=== PATIENT | female | born 1965 | race Caucasian/White ===

== ENCOUNTER 2020-06-10 19:54 | Inpatient (IN) | payer MEDICAID ==
[~2020-06-10] VITALS: Ht 170.2 cm; Wt 67.0 kg
[2020-06-10] MEDS ORDERED: INFLUENZA VIRUS VACCINE QVS 2020-21 (6MO+)/PF 60 MCG/0.5 ML SYRINGE IM ONE (23:00)
[2020-06-11 01:11] VITALS: BP 113/64
[2020-06-11 07:25] LABS: BASOPHILS % (AUTO) 0.4 % (0.0-2.0); EOSINOPHILS % (AUTO) 1.9 % (1.0-6.0); HEMATOCRIT 37.6 % (36-46); HEMOGLOBIN 13.1 g/dL (12.0-16.0); LYMPHOCYTES # (AUTO) 1.3 K/uL (1.0-4.8); LYMPHOCYTES % (AUTO) 23.9 % (22.0-44.0); MEAN CORPUSCULAR HEMOGLOBIN 32.1 pg (26.0-34.0); MEAN CORPUSCULAR HGB CONC 34.9 G/dL (31.0-37.0); MEAN CORPUSCULAR VOLUME 92 fL (80-100); MONOCYTES # (AUTO) 0.4 K/uL (0.1-1.0); MONOCYTES % (AUTO) 7.6 % (2.0-9.0); NEUTROPHILS # (AUTO) 3.5 K/uL (1.8-7.7); NEUTROPHILS % (AUTO) 66.2 % (40.0-70.0); PLATELET COUNT (AUTO) 269 K/uL (150-450); RED BLOOD CELL COUNT(AUTO) 4.08 MIL/uL (4.00-5.20); RED CELL DISTRIBUTION WIDTH 14.1 % (11.5-14.5)
[2020-06-11 07:49] LABS: ALANINE AMINOTRANSFERASE 14 U/L (12-78); ALBUMIN 3.2 g/dL (3.4-5.0); ALKALINE PHOSPHATASE 77 U/L (46-116); ANION GAP 7 mmol/L (8-16); ASPARTATE AMINOTRANSFERASE 14 U/L (15-37); BILIRUBIN,TOTAL 0.3 mg/dL (0.1-1.0); CALCIUM, TOTAL 8.7 mg/dL (8.8-10.5); CARBON DIOXIDE 26 mmol/L (22-29); CHLORIDE 108 mmol/L (98-107); CHOL/HDL RATIO 2.4 (3.9-5.7); CHOLESTEROL 161 mg/dL (131-200); CREATININE 0.76 mg/dL (0.60-1.30); FREE T4 (FREE THYROXINE) 0.91 ng/dL (0.76-1.46); GLOMERULAR FILTR. RATE CALC > 60 mL/min (>60); GLUCOSE,RANDOM 86 mg/dL (70-110); HDL CHOLESTEROL 67 mg/dL (40-60); LDL CHOL (CALC.) 67 mg/dL (0-130); SODIUM SERUM 141 mmol/L (136-145); THYROID STIMULATING HORMONE 0.38 uIU/mL (0.36-3.74); TOTAL PROTEIN, SERUM 6.2 g/dL (6.4-8.2); TRIGLYCERIDES 137 mg/dL (15-150); UREA NITROGEN, BLOOD 13 mg/dL (7-18)
[2020-06-11 11:21] VITALS: BP 111/58
[2020-06-11] MEDS: LORazepam 2 MG TABLET PO PRN ×2 (13:53→22:29)
[2020-06-11 16:13] VITALS: BP 111/63
[2020-06-11] MEDS: ZOLPIDEM TARTRATE 10 MG TABLET PO PRN (20:28)
[2020-06-11] MEDS: ACETAMINOPHEN 325 MG TABLET PO PRN (20:52)
[2020-06-12 01:55] VITALS: BP 118/74
[2020-06-12] MEDS: LORazepam 2 MG TABLET PO PRN ×3 (05:39→16:49)
[2020-06-12 08:11] VITALS: BP 110/81
[2020-06-12] MEDS: HALOPERIDOL 5 MG TABLET PO PRN (08:30)
[2020-06-12 17:27] VITALS: BP 113/62
[2020-06-12] MEDS: ZOLPIDEM TARTRATE 10 MG TABLET PO PRN (20:21)
[2020-06-13 05:55] VITALS: BP 109/61
[2020-06-13] MEDS: ACETAMINOPHEN 325 MG TABLET PO PRN ×2 (06:52→15:30)
[2020-06-13] MEDS: LORazepam 2 MG TABLET PO PRN ×2 (06:52→15:30)
[2020-06-13 08:22] VITALS: BP 106/62
[2020-06-13] MEDS: CITALOPRAM HYDROBROMIDE 20 MG TABLET PO SCH (08:35)
[2020-06-13] MEDS: HALOPERIDOL 5 MG TABLET PO PRN (10:03)
[2020-06-13 15:23] VITALS: BP 108/65
[2020-06-13 16:08] VITALS: BP 110/60
[2020-06-13] MEDS: ZOLPIDEM TARTRATE 10 MG TABLET PO PRN (21:16)
[2020-06-14 00:12] VITALS: BP 112/61
[2020-06-14 08:20] VITALS: BP 99/69
[2020-06-14] MEDS: CITALOPRAM HYDROBROMIDE 20 MG TABLET PO SCH (08:51)
[2020-06-14 11:05] VITALS: BP 117/72
[2020-06-14] MEDS: LORazepam 2 MG TABLET PO PRN ×2 (11:07→16:38)
[2020-06-14] MEDS ORDERED: PIPERONYL BUTOXIDE/PYRETHRINS 120 ML SHAMPOO TP ONE (11:30)
[2020-06-14] MEDS: ACETAMINOPHEN 325 MG TABLET PO PRN ×2 (12:11→17:02)
[2020-06-14] MEDS ORDERED: PERMETHRIN 1% 60 ML LOTION TP ONE (12:15)
[2020-06-14] MEDS: HALOPERIDOL 5 MG TABLET PO PRN (12:23)
[2020-06-14 16:10] VITALS: BP 120/64
[2020-06-14] MEDS: BENZOCAINE 20% 11.9 GM GEL TP PRN (18:04)
[2020-06-14] MEDS: ZOLPIDEM TARTRATE 10 MG TABLET PO PRN (20:29)
[2020-06-14] MEDS: DOXYCYCLINE HYCLATE 100 MG TABLET PO SCH (20:29)
[2020-06-15] MEDS: CITALOPRAM HYDROBROMIDE 20 MG TABLET PO SCH (08:09)
[2020-06-15] MEDS: DOXYCYCLINE HYCLATE 100 MG TABLET PO SCH ×2 (08:09→19:50)
[2020-06-15] MEDS: LORazepam 2 MG TABLET PO PRN ×3 (08:11→17:19)
[2020-06-15 08:46] VITALS: BP 109/73
[2020-06-15] MEDS: HALOPERIDOL 5 MG TABLET PO PRN (09:01)
[2020-06-15 17:51] VITALS: BP 94/62
[2020-06-15] MEDS: ZOLPIDEM TARTRATE 10 MG TABLET PO PRN (19:50)
[2020-06-16] MEDS: DOXYCYCLINE HYCLATE 100 MG TABLET PO SCH ×2 (08:42→20:02)
[2020-06-16] MEDS: CITALOPRAM HYDROBROMIDE 20 MG TABLET PO SCH (08:46)
[2020-06-16 12:21] VITALS: BP 107/62
[2020-06-16] MEDS: HALOPERIDOL 5 MG TABLET PO PRN ×2 (13:04→21:25)
[2020-06-16] MEDS ORDERED: LORazepam 1 MG TABLET PO SCH (14:00)
[2020-06-16] MEDS: LORazepam 1 MG TABLET PO PRN (14:25)
[2020-06-16 17:36] VITALS: BP 100/71
[2020-06-16] MEDS: BENZOCAINE 20% 11.9 GM GEL TP PRN (18:17)
[2020-06-16] MEDS: ZOLPIDEM TARTRATE 10 MG TABLET PO PRN (20:02)
[2020-06-17 04:35] VITALS: BP 115/78
[2020-06-17 08:59] VITALS: BP 112/78
[2020-06-17] MEDS: DOXYCYCLINE HYCLATE 100 MG TABLET PO SCH ×3 (09:00→20:11)
[2020-06-17] MEDS: CITALOPRAM HYDROBROMIDE 20 MG TABLET PO SCH (09:00)
[2020-06-17] MEDS: LORazepam 1 MG TABLET PO PRN ×2 (12:29→18:36)
[2020-06-17] MEDS: HALOPERIDOL 5 MG TABLET PO PRN (15:05)
[2020-06-17 16:32] VITALS: BP 124/83
[2020-06-17 18:09] LABS: COVID AG,FIA SOURCE NASOPHARYNGEAL
[2020-06-17] MEDS: ZOLPIDEM TARTRATE 10 MG TABLET PO PRN (20:11)
[2020-06-17] MEDS ORDERED: CloNIDine HCL 0.1 MG TABLET PO PRN (21:45)
[2020-06-17] MEDS ORDERED: ACETAMINOPHEN 325 MG TABLET PO PRN (21:45)
[2020-06-17] MEDS ORDERED: BACITRACIN 28 GM OINTMENT TP PRN (21:45)
[2020-06-17] MEDS ORDERED: ALBUTEROL SULFATE HFA 90 MCG/PUFF 8 GM INHALER IH PRN (21:45)
[2020-06-17] MEDS ORDERED: ONDANSETRON HCL 4 MG TABLET PO PRN (21:45)
[2020-06-17] MEDS ORDERED: BENZOCAINE/MENTHOL LOZENGE PO PRN (21:45)
[2020-06-17] MEDS ORDERED: IBUPROFEN 600 MG TABLET PO PRN (21:45)
[2020-06-17] MEDS ORDERED: LOPERAMIDE HCL 2 MG CAPSULE PO PRN (21:45)
[2020-06-17] MEDS ORDERED: PETROLATUM,WHITE 28 GM JELLY TP PRN (21:45)
[2020-06-18 06:05] VITALS: BP 110/67
[2020-06-18] MEDS ORDERED: OMEP20TA2 PO (07:54)
[2020-06-18] MEDS ORDERED: DOXY-354 PO (07:54)
[2020-06-18] MEDS ORDERED: CITA-144 PO (07:54)
[2020-06-18 08:37] VITALS: BP 103/49
[2020-06-18] MEDS: DOXYCYCLINE HYCLATE 100 MG TABLET PO SCH (08:40)
[2020-06-18] MEDS: CITALOPRAM HYDROBROMIDE 20 MG TABLET PO SCH (08:40)
[2020-06-18] MEDS ORDERED: OMEPRAZOLE 20 MG CAPSULE PO SCH (09:00)
[2020-06-18] MEDS ORDERED: DOCUSATE SODIUM 100 MG CAPSULE PO SCH (09:00)
== END 2020-06-18 11:47 | disposition home or self-care (01) | DRG 754 ==
LOC: B2S 22:48
PROVIDERS: ADMIT Psychiatry & Neurology Psychiatry; ATTEND Psychiatry & Neurology Psychiatry
DX: F32.9 Major depressive disorder, single episode, unspecified (principal); F41.9 Anxiety disorder, unspecified; R45.851 Suicidal ideations; Z20.828 Contact with and (suspected) exposure to other viral communicable diseases; K59.00 Constipation, unspecified; G47.00 Insomnia, unspecified; F19.10 Other psychoactive substance abuse, uncomplicated; F20.9 Schizophrenia, unspecified; Z59.0 Homelessness; Z28.21 Immunization not carried out because of patient refusal; Z72.0 Tobacco use
CPT/HCPCS: 83036; 84439; 84443; 87426